=== PATIENT | male | born 1940 | race Caucasian/White ===

== ENCOUNTER 2019-05-18 19:32 | Inpatient (IN) ==
[2019-05-18 20:27] LABS: Basophils # 0.1 10*3/uL (0.0-0.2); Basophils % 0.6 % (0.0-0.8); Eosinophils # 0.1 10*3/uL (0.0-0.87); Eosinophils % 0.6 % (0.00-10.9); Hematocrit 46.6 VOL% (42.0-52.0); Hemoglobin 15.2 GM/DL (14.0-18.0); Immature Granulocytes % 0.4 %; Immature Granulocytes Absolute 0.05 #; Lymphocytes % 7.7 % (21.2-54.2); Mean Corpuscular HGB Conc 32.6 GM/DL (32-36); Mean Corpuscular Volume 95.3 FL (87-102); Mean Platelet Volume 9.1 FL (9.6-12.0); Neutrophils % 82.7 % (38.7-73.9); Platelet Count 217 T/CUMM (130-400); Red Blood Count 4.89 MC/CUMM (3.8-5.5); Red Cell Distribution Width 14.1 % (9.3-17.3); White Blood Count 12.8 T/CUMM (4-12)
[2019-05-18 20:37] LABS: Alanine Aminotransferase 75 U/L (16-61); Albumin 3.8 G/DL (3.4-5.0); Alkaline Phosphatase 122 U/L (45-117); Aspartate Amino Transferase 43 U/L (0-37); Bilirubin,Total < 0.39 MG/DL (0.2-1.0); Blood Urea Nitrogen 35 MG/DL (7-18); Calcium 9.1 MG/DL (8.5-10.1); Estimated Glom Filtration Rate 34 ML/MIN; Glucose 173 MG/DL (74-106); Osmolality,Calculated 286.7 MOS/KG (273-304); Total Protein 7.8 G/DL (6.4-8.3)
[2019-05-18] MEDS ORDERED: NITROGLYCERIN SL 0.4 MG TABLET SL STA (21:10)
[2019-05-18] MEDS ORDERED: AZITHROMYCIN INJ 500 MG in SODIUM CHLORIDE 0.9% 250 ML IV STA (21:10)
[2019-05-18] MEDS ORDERED: ASPIRIN 325 MG TABLET PO STA (21:10)
[2019-05-18] MEDS ORDERED: FUROSEMIDE 40 MG/4 ML VIAL IV STA (21:10)
[2019-05-18 21:18] LABS: PT Patient Result 10.8 SECS (9.8-11.9); Partial Thromboplastin Time 28.6 SECS (23.9-33.8)
[2019-05-18 21:29] LABS: Ferritin 114.1 ng/ml (26-388)
[2019-05-18] MEDS ORDERED: DEXTROSE 50% 25 GM/50 ML VIAL IV PRN (23:14)
[2019-05-18] MEDS ORDERED: ACETAMINOPHEN 325 MG TABLET PO PRN (23:14)
[2019-05-18] MEDS ORDERED: BISACODYL 5 MG TABLET PO PRN (23:14)
[2019-05-18] MEDS ORDERED: ONDANSETRON 4 MG/2 ML VIAL IV PRN (23:14)
[2019-05-18] MEDS ORDERED: DEXTROSE 50% 25 GM/50 ML SYRINGE IV PRN (23:14)
[2019-05-18] MEDS ORDERED: MAGNESIUM SULF RIDER 2 GM in PREMIX 1 EACH IV PRN (23:14)
[2019-05-18] MEDS ORDERED: GLUCAGON 1 MG VIAL IM PRN (23:14)
[2019-05-18] MEDS ORDERED: MAGNESIUM SULF RIDER 4 GM in PREMIX 1 EACH IV PRN (23:14)
[2019-05-18] MEDS ORDERED: AZITHROMYCIN INJ 500 MG in SODIUM CHLORIDE 0.9% 250 ML IV SCH (23:30)
[2019-05-18] MEDS: cefTRIAXone 1,000 MG in SYRINGE 1 EACH IV SCH (23:40)
[2019-05-19] MEDS: ENOXAPARIN 40 MG/0.4 ML SYRINGE SUBCUT SCH ×2 (00:20→23:13)
[2019-05-19] MEDS: INSULIN REGULAR 100 UNIT/ML SUBCUT SCH ×5 (01:20→22:30)
[2019-05-19 05:51] LABS: Basophils % 0.7 % (0.0-0.8); Eosinophils % 0.5 % (0.00-10.9); Hematocrit 34.6 VOL% (42.0-52.0); Hemoglobin 11.3 GM/DL (14.0-18.0); Immature Granulocytes % 0.2 %; Immature Granulocytes Absolute 0.01 #; Lymphocytes # 0.5 10*3/uL (1.4-4.0); Lymphocytes % 7.8 % (21.2-54.2); Mean Corpuscular HGB Conc 32.7 GM/DL (32-36); Mean Corpuscular Volume 95.1 FL (87-102); Mean Platelet Volume 9.2 FL (9.6-12.0); Monocytes % 10.5 % (1.7-12.7); Neutrophils % 80.3 % (38.7-73.9); Platelet Count 131 T/CUMM (130-400); Red Blood Count 3.64 MC/CUMM (3.8-5.5); Red Cell Distribution Width 14.2 % (9.3-17.3); White Blood Count 5.9 T/CUMM (4-12)
[2019-05-19 06:24] LABS: Albumin 2.3 G/DL (3.4-5.0); Bilirubin,Total 0.7 MG/DL (0.2-1.0); Calcium 6.3 MG/DL (8.5-10.1); Osmolality,Calculated 292.7 MOS/KG (273-304); Risk Ratio 2.63; Thyroid Stimulating Hormone 1.09 uIU/ml (0.358-3.74)
[2019-05-19] MEDS ORDERED: ROSUVASTATIN 20 MG TABLET PO SCH (09:00)
[2019-05-19] MEDS ORDERED: METOPROLOL SUCCINATE XL 100 MG TABLET PO SCH (09:00)
[2019-05-19] MEDS ORDERED: ASPIRIN EC 81 MG TABLET PO SCH (09:00)
[2019-05-19] MEDS: ALBUTEROL INHALER 8 GM INH SCH ×3 (09:32→20:20)
[2019-05-19] MEDS: FUROSEMIDE 40 MG/4 ML VIAL IV SCH ×2 (09:32→16:58)
[2019-05-19] MEDS: hydrALAZINE 25 MG TABLET PO SCH ×2 (09:33→22:25)
[2019-05-19] MEDS: PANTOPRAZOLE 40 MG TABLET PO SCH (09:33)
[2019-05-19] MEDS: SERTRALINE 50 MG TABLET PO SCH (09:33)
[2019-05-19] MEDS: EZETIMIBE 10 MG TABLET PO SCH ×2 (09:33→22:25)
[2019-05-19] MEDS: POTASSIUM CHLORIDE RIDER 10 MEQ in PREMIX 1 EACH IV PRN ×6 (09:36→22:20)
[2019-05-19] MEDS: ROSUVASTATIN 20 MG TABLET PO SCH (22:25)
[2019-05-19] MEDS: AZITHROMYCIN 250 MG TABLET PO SCH (22:25)
[2019-05-19] MEDS: METOPROLOL SUCCINATE XL 100 MG TABLET PO SCH ×2 (22:25→23:10)
[2019-05-19] MEDS: ASPIRIN EC 81 MG TABLET PO SCH (22:25)
[2019-05-20] MEDS: cefTRIAXone 1,000 MG in SYRINGE 1 EACH IV SCH ×2 (00:38→22:32)
[2019-05-20] MEDS: ALBUTEROL INHALER 8 GM INH SCH ×4 (04:38→18:34)
[2019-05-20 04:48] LABS: Basophils % 0.6 % (0.0-0.8); Eosinophils # 0.2 10*3/uL (0.0-0.87); Eosinophils % 3.1 % (0.00-10.9); Hematocrit 40.9 VOL% (42.0-52.0); Hemoglobin 13.6 GM/DL (14.0-18.0); Immature Granulocytes % 0.2 %; Immature Granulocytes Absolute 0.01 #; Lymphocytes # 0.8 10*3/uL (1.4-4.0); Lymphocytes % 11.6 % (21.2-54.2); Mean Corpuscular HGB Conc 33.3 GM/DL (32-36); Mean Platelet Volume 9.5 FL (9.6-12.0); Monocytes % 11.9 % (1.7-12.7); Neutrophils % 72.6 % (38.7-73.9); Platelet Count 175 T/CUMM (130-400); White Blood Count 6.5 T/CUMM (4-12)
[2019-05-20 05:10] LABS: Calcium 8.5 MG/DL (8.5-10.1); Osmolality,Calculated 284.7 MOS/KG (273-304)
[2019-05-20] MEDS: INSULIN REGULAR 100 UNIT/ML SUBCUT SCH ×4 (09:59→21:25)
[2019-05-20] MEDS: hydrALAZINE 25 MG TABLET PO SCH ×2 (09:59→21:25)
[2019-05-20] MEDS: FUROSEMIDE 40 MG/4 ML VIAL IV SCH ×2 (09:59→16:30)
[2019-05-20] MEDS: SERTRALINE 50 MG TABLET PO SCH (10:00)
[2019-05-20] MEDS: PANTOPRAZOLE 40 MG TABLET PO SCH (10:00)
[2019-05-20] MEDS: EZETIMIBE 10 MG TABLET PO SCH ×2 (10:00→21:25)
[2019-05-20] MEDS: ASPIRIN EC 81 MG TABLET PO SCH (10:00)
[2019-05-20] MEDS: METOPROLOL SUCCINATE XL 100 MG TABLET PO SCH (21:25)
[2019-05-20] MEDS: ROSUVASTATIN 20 MG TABLET PO SCH (21:25)
[2019-05-20] MEDS: AZITHROMYCIN 250 MG TABLET PO SCH (21:25)
[2019-05-20] MEDS: ENOXAPARIN 40 MG/0.4 ML SYRINGE SUBCUT SCH (22:32)
[2019-05-21 06:31] LABS: Basophils # 0.1 10*3/uL (0.0-0.2); Basophils % 0.7 % (0.0-0.8); Eosinophils # 0.2 10*3/uL (0.0-0.87); Eosinophils % 3.2 % (0.00-10.9); Hematocrit 44.1 VOL% (42.0-52.0); Hemoglobin 14.5 GM/DL (14.0-18.0); Immature Granulocytes % 0.3 %; Immature Granulocytes Absolute 0.02 #; Lymphocytes # 0.8 10*3/uL (1.4-4.0); Lymphocytes % 10.9 % (21.2-54.2); Mean Corpuscular HGB Conc 32.9 GM/DL (32-36); Mean Corpuscular Volume 94.4 FL (87-102); Mean Platelet Volume 9.3 FL (9.6-12.0); Monocytes % 10.5 % (1.7-12.7); Neutrophils % 74.4 % (38.7-73.9); Platelet Count 201 T/CUMM (130-400); Red Blood Count 4.67 MC/CUMM (3.8-5.5); White Blood Count 7.2 T/CUMM (4-12)
[2019-05-21 06:41] LABS: Calcium 8.9 MG/DL (8.5-10.1); Osmolality,Calculated 291.4 MOS/KG (273-304)
[2019-05-21] MEDS: ASPIRIN EC 81 MG TABLET PO SCH (08:11)
[2019-05-21] MEDS: FUROSEMIDE 40 MG/4 ML VIAL IV SCH (08:11)
[2019-05-21] MEDS: SERTRALINE 50 MG TABLET PO SCH (08:11)
[2019-05-21] MEDS: EZETIMIBE 10 MG TABLET PO SCH ×2 (08:11→21:50)
[2019-05-21] MEDS: PANTOPRAZOLE 40 MG TABLET PO SCH (08:11)
[2019-05-21] MEDS: INSULIN REGULAR 100 UNIT/ML SUBCUT SCH ×4 (08:39→23:47)
[2019-05-21] MEDS: hydrALAZINE 25 MG TABLET PO SCH ×2 (08:39→21:50)
[2019-05-21] MEDS: ALBUTEROL INHALER 8 GM INH SCH ×4 (08:39→21:50)
[2019-05-21] MEDS ORDERED: MAGNESIUM SULF RIDER 2 GM in PREMIX 1 EACH IV PRN (08:47)
[2019-05-21] MEDS: ACETYLCYSTEINE 600 MG CAPSULE PO SCH ×2 (10:22→21:50)
[2019-05-21] MEDS: SODIUM CHLORIDE 0.45% 1,000 ML IV SCH ×2 (16:18→23:49)
[2019-05-21] MEDS: AZITHROMYCIN 250 MG TABLET PO SCH (21:50)
[2019-05-21] MEDS: ROSUVASTATIN 20 MG TABLET PO SCH (21:50)
[2019-05-21] MEDS: METOPROLOL SUCCINATE XL 100 MG TABLET PO SCH (21:50)
[2019-05-21] MEDS: cefTRIAXone 1,000 MG in SYRINGE 1 EACH IV SCH (23:50)
[2019-05-21] MEDS: ENOXAPARIN 40 MG/0.4 ML SYRINGE SUBCUT SCH (23:50)
[2019-05-22] MEDS: ALBUTEROL INHALER 8 GM INH SCH ×4 (01:37→20:35)
[2019-05-22] MEDS ORDERED: DIAZEPAM 5 MG TABLET PO ONE (06:00)
[2019-05-22 06:10] LABS: Basophils # 0.1 10*3/uL (0.0-0.2); Basophils % 0.7 % (0.0-0.8); Eosinophils # 0.4 10*3/uL (0.0-0.87); Eosinophils % 4.8 % (0.00-10.9); Hematocrit 42.7 VOL% (42.0-52.0); Hemoglobin 13.8 GM/DL (14.0-18.0); Immature Granulocytes % 0.2 %; Immature Granulocytes Absolute 0.02 #; Lymphocytes % 12.2 % (21.2-54.2); Mean Corpuscular HGB Conc 32.3 GM/DL (32-36); Mean Corpuscular Volume 95.3 FL (87-102); Mean Platelet Volume 9.4 FL (9.6-12.0); Monocytes % 11.7 % (1.7-12.7); Neutrophils % 70.4 % (38.7-73.9); Platelet Count 220 T/CUMM (130-400); Red Blood Count 4.48 MC/CUMM (3.8-5.5); Red Cell Distribution Width 13.8 % (9.3-17.3); White Blood Count 8.1 T/CUMM (4-12)
[2019-05-22 06:30] LABS: Calcium 8.5 MG/DL (8.5-10.1); Osmolality,Calculated 284.8 MOS/KG (273-304)
[2019-05-22] MEDS: SODIUM CHLORIDE 0.45% 1,000 ML IV SCH ×2 (07:17→15:55)
[2019-05-22] MEDS ORDERED: MIDAZOLAM 2 MG/2 ML VIAL ONE ×2 (07:41→07:52)
[2019-05-22] MEDS ORDERED: fentaNYL 100 MCG/2 ML VIAL ONE (07:41)
[2019-05-22] MEDS ORDERED: LIDOCAINE 1% 20 ML VIAL ONE (07:44)
[2019-05-22] MEDS ORDERED: diphenhydrAMINE 50 MG/1 ML VIAL ONE (07:52)
[2019-05-22] MEDS ORDERED: diphenhydrAMINE CAP 25 MG CAPSULE PO ONE (08:00)
[2019-05-22] MEDS: INSULIN REGULAR 100 UNIT/ML SUBCUT SCH ×4 (11:57→22:56)
[2019-05-22] MEDS: hydrALAZINE 25 MG TABLET PO SCH ×2 (13:47→20:35)
[2019-05-22] MEDS: SERTRALINE 50 MG TABLET PO SCH (14:08)
[2019-05-22] MEDS: ACETYLCYSTEINE 600 MG CAPSULE PO SCH ×2 (14:08→20:35)
[2019-05-22] MEDS: EZETIMIBE 10 MG TABLET PO SCH ×2 (14:08→20:35)
[2019-05-22] MEDS: PANTOPRAZOLE 40 MG TABLET PO SCH (14:08)
[2019-05-22] MEDS: ASPIRIN EC 81 MG TABLET PO SCH (14:08)
[2019-05-22] MEDS: POTASSIUM CHLORIDE RIDER 10 MEQ in PREMIX 1 EACH IV PRN ×2 (18:28→20:35)
[2019-05-22] MEDS: AZITHROMYCIN 250 MG TABLET PO SCH (20:35)
[2019-05-22] MEDS: ROSUVASTATIN 20 MG TABLET PO SCH (20:35)
[2019-05-22] MEDS: METOPROLOL SUCCINATE XL 100 MG TABLET PO SCH (20:35)
[2019-05-22] MEDS: ENOXAPARIN 40 MG/0.4 ML SYRINGE SUBCUT SCH (23:21)
[2019-05-22] MEDS: cefTRIAXone 1,000 MG in SYRINGE 1 EACH IV SCH (23:21)
[2019-05-23] MEDS: ALBUTEROL INHALER 8 GM INH SCH ×2 (01:50→10:10)
[2019-05-23] MEDS: SODIUM CHLORIDE 0.45% 1,000 ML IV SCH ×2 (02:17→07:32)
[2019-05-23 06:32] LABS: Basophils # 0.1 10*3/uL (0.0-0.2); Basophils % 0.9 % (0.0-0.8); Eosinophils # 0.4 10*3/uL (0.0-0.87); Eosinophils % 7.2 % (0.00-10.9); Hematocrit 38.7 VOL% (42.0-52.0); Hemoglobin 12.7 GM/DL (14.0-18.0); Immature Granulocytes % 0.3 %; Immature Granulocytes Absolute 0.02 #; Lymphocytes # 0.9 10*3/uL (1.4-4.0); Lymphocytes % 15.3 % (21.2-54.2); Mean Corpuscular HGB Conc 32.8 GM/DL (32-36); Mean Corpuscular Volume 94.9 FL (87-102); Mean Platelet Volume 9.1 FL (9.6-12.0); Neutrophils % 61.3 % (38.7-73.9); Platelet Count 178 T/CUMM (130-400); Red Blood Count 4.08 MC/CUMM (3.8-5.5); Red Cell Distribution Width 13.7 % (9.3-17.3); White Blood Count 5.9 T/CUMM (4-12)
[2019-05-23 06:58] LABS: Calcium 8.4 MG/DL (8.5-10.1); Osmolality,Calculated 290.4 MOS/KG (273-304)
[2019-05-23] MEDS ORDERED: ASCORBIC ACID 500 MG TABLET PO SCH (09:00)
[2019-05-23] MEDS ORDERED: POTASSIUM CHLORIDE 20 MEQ TABLET PO SCH (09:00)
[2019-05-23] MEDS ORDERED: FUROSEMIDE 40 MG TABLET PO SCH (09:00)
[2019-05-23] MEDS: INSULIN REGULAR 100 UNIT/ML SUBCUT SCH ×2 (10:10→12:35)
[2019-05-23] MEDS: ASPIRIN EC 81 MG TABLET PO SCH (10:10)
[2019-05-23] MEDS: PANTOPRAZOLE 40 MG TABLET PO SCH (10:11)
[2019-05-23] MEDS: ACETYLCYSTEINE 600 MG CAPSULE PO SCH (10:11)
[2019-05-23] MEDS: SERTRALINE 50 MG TABLET PO SCH (10:11)
[2019-05-23 12:30] VITALS: BP 139/72
== END 2019-05-23 14:07 | disposition home or self-care (01) | DRG 286 ==
LOC: N.ED 19:32 → SUATTDRO 23:14 → N.EDINP 23:14 → SUPCPDRO 23:14 → N.EDINP 05-19 00:29 → N.2E 05-19 01:06
PROVIDERS: ADMIT Internal Medicine; ATTEND Internal Medicine
PROC: CLCCHCL (ICD-10-PCS; 2019-05-22 08:15)

== ENCOUNTER 2020-10-20 18:45 | Observation (INO) ==
[2020-10-20] MEDS ORDERED: SODIUM CHLORIDE 0.9% 500 ML IV STA (19:37)
[2020-10-20 19:49] LABS: Basophils # 0.1 10*3/uL (0.0-0.2); Basophils % 0.8 % (0.0-0.8); Eosinophils % 0.6 % (0.00-10.9); Immature Granulocytes % 0.3 %; Immature Granulocytes Absolute 0.02 #; Lymphocytes # 0.9 10*3/uL (1.4-4.0); Mean Corpuscular HGB Conc 32.4 GM/DL (32-36); Mean Corpuscular Volume 96.6 FL (87-102); Mean Platelet Volume 9.3 FL (9.6-12.0); Monocytes % 14.4 % (1.7-12.7); Neutrophils % 69.9 % (38.7-73.9); Platelet Count 185 T/CUMM (130-400); Red Blood Count 3.83 MC/CUMM (3.8-5.5); Red Cell Distribution Width 13.3 % (9.3-17.3); White Blood Count 6.6 T/CUMM (4-12)
[2020-10-20 20:07] LABS: Albumin 3.2 G/DL (3.4-5.0); Bilirubin,Total 0.4 MG/DL (0.20-1.00); Calcium 8.8 MG/DL (8.5-10.1); Osmolality,Calculated 287.5 MOS/KG (273-304); Potassium 3.5 MMOL/L (3.5-5.1); Total Protein 6.5 G/DL (6.4-8.2)
[2020-10-20 20:43] LABS: Bilirubin,Urine Negative (Negative); Blood, Urine Negative (Negative); Glucose,Urine (UA) Negative (Negative); Hyaline Casts,Urine 21 /LPF (0-3); Ketones,Urine Negative (Negative); Mucus,Urine Occasional /LPF (Occasional); Nitrite,Urine Negative (Negative); Protein,Urine 30 MG/DL; RBC,Urine 2 /HPF (0-4); Urine Appearance CLEAR (Clear); Urine Color Yellow (Yellow); Urine Specific Gravity 1.012 (1.001-1.035); Urine Urobilinogen < 2.0 EU/DL (0.2-1.0)
[2020-10-20] MEDS ORDERED: hydrALAZINE 20 MG/1 ML VIAL IV STA (21:57)
[2020-10-21] MEDS ORDERED: ACETAMINOPHEN 325 MG TABLET PO PRN (01:10)
[2020-10-21] MEDS ORDERED: ONDANSETRON 4 MG/2 ML VIAL IV PRN (01:10)
[2020-10-21] MEDS ORDERED: DOCUSATE SODIUM 100 MG CAPSULE PO PRN (01:10)
[2020-10-21] MEDS ORDERED: DEXTROSE 50% 25 GM/50 ML VIAL IV PRN (01:10)
[2020-10-21] MEDS ORDERED: SIMETHICONE CHEW 125 MG TABLET PO PRN (01:10)
[2020-10-21] MEDS ORDERED: GLUCAGON 1 MG VIAL IM PRN (01:10)
[2020-10-21] MEDS ORDERED: MAGNESIUM SULF RIDER 2 GM/50 ML PREMIX IV PRN (01:20)
[2020-10-21] MEDS ORDERED: POTASSIUM CHLORIDE RIDER 10 MEQ/100 ML PREMIX IV PRN (01:20)
[2020-10-21] MEDS ORDERED: MAGNESIUM SULF RIDER 4 GM/100 ML PREMIX IV PRN (01:20)
[2020-10-21] MEDS: HEPARIN 5,000 UNIT/1 ML VIAL SUBCUT SCH ×3 (03:01→16:48)
[2020-10-21 05:55] LABS: Albumin 2.9 G/DL (3.4-5.0); Bilirubin,Total 0.5 MG/DL (0.20-1.00); Calcium 9.1 MG/DL (8.5-10.1); Osmolality,Calculated 291.5 MOS/KG (273-304); Potassium 3.1 MMOL/L (3.5-5.1); Thyroid Stimulating Hormone 1.72 uIU/ml (0.358-3.74); Total Protein 6.7 G/DL (6.4-8.2)
[2020-10-21] MEDS: POTASSIUM CHLORIDE 20 MEQ TABLET PO PRN ×2 (09:15→16:37)
[2020-10-21] MEDS: PANTOPRAZOLE 40 MG TABLET PO SCH (09:15)
[2020-10-21] MEDS: INSULIN REGULAR 100 UNIT/ML SUBCUT SCH ×4 (11:45→22:09)
[2020-10-21] MEDS: DEXTROSE 5% NACL 0.45% 1,000 ML IV SCH (11:46)
[2020-10-21] MEDS: LACTATED RINGERS 1,000 ML IV SCH (16:48)
[2020-10-21] MEDS ORDERED: ASPIRIN EC 81 MG TABLET PO SCH (19:00)
[2020-10-21] MEDS: EZETIMIBE 10 MG TABLET PO SCH (21:04)
[2020-10-21] MEDS: ROSUVASTATIN 20 MG TABLET PO SCH (21:05)
[2020-10-22] MEDS: HEPARIN 5,000 UNIT/1 ML VIAL SUBCUT SCH ×3 (04:25→21:25)
[2020-10-22] MEDS: LACTATED RINGERS 1,000 ML IV SCH ×2 (04:26→13:49)
[2020-10-22 05:55] LABS: Calcium 8.8 MG/DL (8.5-10.1); Osmolality,Calculated 292.4 MOS/KG (273-304); Potassium 3.6 MMOL/L (3.5-5.1)
[2020-10-22] MEDS: INSULIN REGULAR 100 UNIT/ML SUBCUT SCH ×4 (07:46→21:24)
[2020-10-22] MEDS: POTASSIUM CHLORIDE 20 MEQ TABLET PO PRN ×2 (09:48→12:15)
[2020-10-22] MEDS: PANTOPRAZOLE 40 MG TABLET PO SCH (09:48)
[2020-10-22] MEDS: METOPROLOL SUCCINATE XL 50 MG TABLET PO SCH (09:52)
[2020-10-22] MEDS: DEXTROSE 5% NACL 0.45% 1,000 ML IV SCH (10:18)
[2020-10-22] MEDS ORDERED: ASPIRIN EC 81 MG TABLET PO SCH (21:00)
[2020-10-22] MEDS: EZETIMIBE 10 MG TABLET PO SCH (21:24)
[2020-10-22] MEDS: ROSUVASTATIN 20 MG TABLET PO SCH (21:24)
[2020-10-23] MEDS: HEPARIN 5,000 UNIT/1 ML VIAL SUBCUT SCH (05:25)
[2020-10-23] MEDS: INSULIN REGULAR 100 UNIT/ML SUBCUT SCH ×2 (08:12→12:06)
[2020-10-23 08:47] LABS: Calcium 8.9 MG/DL (8.5-10.1); Osmolality,Calculated 288.3 MOS/KG (273-304); Potassium 4.4 MMOL/L (3.5-5.1)
[2020-10-23] MEDS: PANTOPRAZOLE 40 MG TABLET PO SCH (08:48)
[2020-10-23] MEDS: METOPROLOL SUCCINATE XL 50 MG TABLET PO SCH (08:48)
[2020-10-23] MEDS ORDERED: SACUBITRIL/VALSARTAN 49-51 MG TABLET PO SCH (09:00)
[2020-10-23 12:08] VITALS: BP 170/84
== END 2020-10-23 13:30 | disposition home or self-care (01) ==
LOC: EDUNIT# → EDBD → N.ED 18:45 → N.EDINP 18:45 → N.TELEN 10-21 02:22
PROVIDERS: ADMIT Internal Medicine; ATTEND Internal Medicine